=== PATIENT | female | born 1945 | race Caucasian/White ===

== ENCOUNTER 2018-09-15 21:45 | Emergency (ER) | payer MEDICAID, MEDICARE, SELFPAY ==
[~2018-09-15] VITALS: Ht 152.4 cm; Wt 51.8 kg
[~2018-09-15 21:45] MED LIST: AMIT25TA9 PO; LISI10TA7 PO; PHEN100C23 PO
[2018-09-15] MEDS ORDERED: HYDROCODONE/ACETAMINOPHEN 5-325 MG TABLET PO ONE (23:45)
[2018-09-16 00:36] VITALS: BP 148/80
== END 2018-09-16 00:55 | disposition home or self-care (01) ==
LOC: EMS 21:47
DX: S42.292A Other displaced fracture of upper end of left humerus, initial encounter for closed fracture (principal); Z79.899 Other long term (current) drug therapy; I10 Essential (primary) hypertension; W18.39XA Other fall on same level, initial encounter; Y93.89 Activity, other specified; Y92.89 Other specified places as the place of occurrence of the external cause; Y99.8 Other external cause status